=== PATIENT | female | born 1955 | race Caucasian/White ===

== ENCOUNTER 2016-11-26 17:39 | Inpatient (IN) | payer OTHER, MEDICAID ==
[2016-11-26] VITALS (7 sets, daily range): BP systolic 90–129; BP diastolic 61–73
[~2016-11-26] VITALS: Ht 167.6 cm; Wt 103.0 kg
--- NOTE | 2016-11-26 17:39 | NUR ---
gymb585 from [employer]: s/p witnessed seizure x 2. versed 5 given in field. post ictal. nad noted. rr even and unlabored. vss. continue to monitor.
[2016-11-26] MEDS ORDERED: LEVETIRACETAM (500MG) 500 MG in IV NS 0.9% 100 ML IV ONE (18:00)
[2016-11-26] MEDS ORDERED: IV SET PRIMARY PUMP SET 1 EA INFUS.SET MC ONE ×4 (18:24→22:05)
[2016-11-26 18:26] LABS: BASOPHILS % (AUTO) 0.3 % (0.0-2.0); EOSINOPHILS # (AUTO) 0.1 /CMM (0.0-0.7); EOSINOPHILS % (AUTO) 1.7 % (0.0-6.0); HEMATOCRIT 40 % (33-45); HEMOGLOBIN 13.4 g/dL (11.5-14.8); LYMPHOCYTES # (AUTO) 0.3 /CMM (0.8-4.8); LYMPHOCYTES % (AUTO) 6.1 % (20.0-44.0); MEAN CORPUSCULAR HEMOGLOBIN 31 PG (26.0-33.0); MEAN CORPUSCULAR HGB CONC 33 g/dl (31.0-36.0); MEAN CORPUSCULAR VOLUME 93 fL (82-100); MONOCYTES # (AUTO) 0.3 /CMM (0.1-1.30); NEUTROPHILS # (AUTO) 4.7 /CMM (1.8-8.9); NEUTROPHILS % (AUTO) 86.9 % (43.0-81.0); PLATELET COUNT (AUTO) 154 /CMM (150-450); RDW COEFFICIENT OF VARIATION 14.4 (11.5-15.0); RED BLOOD CELL COUNT(AUTO) 4.34 MIL/uL (4.0-5.2); WHITE BLOOD COUNT (AUTO) 5.4 K/uL (4.3-11.0)
[2016-11-26 18:31] LABS: PROTHROMBIN TIME 10.7 SECS (9.5-12.7)
[2016-11-26 18:32] LABS: CALCIUM, SERUM 8.4 mg/dL (8.5-10.1); CARBON DIOXIDE 24 mmol/L (21-32); CHLORIDE 104 mmol/L (98-107); GFR 57 mL/min (>60); GLUCOSE 169 mg/dL (74-106); SODIUM SERUM 139 mmol/L (136-145); UREA NITROGEN, BLOOD 19 mg/dL (7-18)
--- NOTE | 2016-11-26 18:35 | NUR ---
pt to ct
[2016-11-26] MEDS ORDERED: LORAZEPAM INJ 2 MG/ML VIAL ONE ×2 (18:38→19:31)
[2016-11-26 18:39] LABS: TROPONIN I < 0.017 ng/mL (0.00-0.056)
[2016-11-26 18:50] LABS: ALANINE AMINOTRANSFERASE 27 U/L (12-78); ALBUMIN 3.5 g/dL (3.4-5.0); ALKALINE PHOSPHATASE 145 U/L (46-116); ASPARTATE AMINOTRANSFERASE 44 U/L (15-37); BILIRUBIN,TOTAL 0.4 mg/dL (0.2-1.0); TOTAL PROTEIN, SERUM 7.5 g/dL (6.4-8.2)
[2016-11-26 18:51] LABS: ALCOHOL, BLOOD < 3 mg/dL (0-0)
[2016-11-26] MEDS ORDERED: LORAZEPAM INJ 2 MG/ML VIAL IV ONE ×2 (19:00→19:30)
--- NOTE | 2016-11-26 19:11 | NUR ---
REPORT RECEIVED BY HAO ALONSO.
[2016-11-26] MEDS ORDERED: PIPERACILLIN /TAZOBACTAM 3.375 G in IV D5W 50 ML IV ONE (19:30)
[2016-11-26] MEDS ORDERED: VANCOMYCIN 1 GM in IV D5W 250 ML IV ONE (19:30)
[2016-11-26] MEDS ORDERED: IV NS 0.9% 1,000 ML BAG IV ONE (19:30)
[2016-11-26] MEDS ORDERED: IV SET PRIMARY 1 EA INFUS.SET MC ONE (19:34)
[2016-11-26] MEDS ORDERED: PIPERACILLIN /TAZOBACTAM 3.375 G VIAL IV ONE (19:34)
[2016-11-26] MEDS ORDERED: IV NS 0.9% 500 ML IV ONE (19:34)
[2016-11-26] MEDS ORDERED: IV NS 0.9% 3,000 ML ONE (19:34)
[2016-11-26] MEDS ORDERED: phenytoin SODIUM IV 1,000 MG in IV NS 0.9% 100 ML IV ONE (20:00)
--- NOTE | 2016-11-26 20:33 | NUR ---
REPORT GIVEN TO HAO PABLO ICU BED 253
--- NOTE | 2016-11-26 20:34 | NUR ---
ENDORSES TO HAO PABLO IVPB VANCOMYCIN 1GM
[2016-11-26] MEDS ORDERED: LORA1TAB PO (20:47)
--- NOTE | 2016-11-26 21:12 | NUR ---
PT TRASNFERED TO ICU BED 253 PER ACLS PROTOCOL.
[2016-11-26] MEDS ORDERED: ACETAMINOPHEN 650 MG/SUPP.RECT RC ONE (21:49)
[2016-11-26] MEDS ORDERED: IV PREMIX D5 NS + KCL 1,000 ML IV ONE (21:49)
[2016-11-26] MEDS ORDERED: Potassium Chloride 20 MEQ in IV D5/ 0.9% NACL 1,000 ML IV PRN ×2 (22:00→22:30)
[2016-11-26] MEDS: ACETAMINOPHEN 650 MG/SUPP.RECT RC PRN (22:01)
--- NOTE | 2016-11-26 22:19 | NUR ---
MOTION PICTURE DIRECTOR: RECEIVED PT FROM ER AT 2114, ADMITTED UNDER DR BENNETT , DX SEIZURE DISORDERS. PT IS ALTERED , OPEN EYES WITH VERBAL STIMULATION ONLY, FOLLOW SIMPLE COMMANDS. PT RECEIVED KEPPRA IV IN ER, DILANTIN IV WAS RUNNING UPON RECEIVING FROM ER. THERE IS 3 BAGS OF NS WITH 600 ML VOLUME IN EACH BAG HANGING WITHOUT CONNECT TO IV. PER ER NURSE REPORT 3.4 L NS FLUID GIVEN. ALL ADMISSION ASSESSMENT DONE. SKIN IS INTACT. UNABLE TO GET PAST HISTORY EXCEPT SEIZURE MENTIONED IN ER MD DOCUMENTATION. V/S STABLE. ON 3 L NC SATURATING 98%. BP STABLE. TEMP 101.1, TYLENOL SUPPOSITORY RECTALLY INSERTED. COOLING MEASURES APPLIED. DR BENNETT MADE AWARE. ADMISSION ORDERS RECEIVED FROM DR BENNETT. KEEP MONITORING....
--- NOTE | 2016-11-26 22:40 | NUR ---
NUMERICAL CONTROL OPERATOR": RN CALLED DR BENNETT MADE AWARE PT HAS HOME MED ATIVAN 1 MG PO PRN FOR SEIZURES. DR BENNETT DOESN'T WANT TO ORDER ATIVAN PRN FOR SEIZURE, DR WANT RN TO CALL HIM IF SEIZURE OCCURS.SEIZURE PRECAUTION PLACED, SIDE RAILS OF BED PADDED, SEIZURE PAD APPLIED AROUND THE BED. KEEP MONITORING.
[2016-11-27] VITALS (39 sets, daily range): BP systolic 89–140; BP diastolic 41–107
--- NOTE | 2016-11-27 01:03 | NUR ---
TRANSIT WORKER: RECHECKED TEMP 99.6. KEEP MONITORING...
[2016-11-27] MEDS ORDERED: ACETAMINOPHEN 650 MG/SUPP.RECT RC ONE (01:33)
[2016-11-27] MEDS: ACETAMINOPHEN 650 MG/SUPP.RECT RC PRN ×2 (02:09→08:57)
--- NOTE | 2016-11-27 02:11 | NUR ---
CONFIDENTIAL INVESTIGATOR; ORALLY TEMP 102 F, TYLENOL SUPPOSITORY RC INSERTED, COLD BATH GIVEN. TURNED ON FAN. KEEP MONITORING.
[2016-11-27 04:40] LABS: BASOPHILS % (AUTO) 0.3 % (0.0-2.0); EOSINOPHILS % (AUTO) 0.1 % (0.0-6.0); HEMATOCRIT 37 % (33-45); HEMOGLOBIN 12.2 g/dL (11.5-14.8); LYMPHOCYTES # (AUTO) 0.4 /CMM (0.8-4.8); LYMPHOCYTES % (AUTO) 9.3 % (20.0-44.0); MEAN CORPUSCULAR HEMOGLOBIN 31 PG (26.0-33.0); MEAN CORPUSCULAR HGB CONC 33 g/dl (31.0-36.0); MEAN CORPUSCULAR VOLUME 93 fL (82-100); MONOCYTES # (AUTO) 0.2 /CMM (0.1-1.30); MONOCYTES % (AUTO) 4.6 % (2.0-12.0); NEUTROPHILS % (AUTO) 85.7 % (43.0-81.0); PLATELET COUNT (AUTO) 149 /CMM (150-450); RDW COEFFICIENT OF VARIATION 14.1 (11.5-15.0); RED BLOOD CELL COUNT(AUTO) 3.97 MIL/uL (4.0-5.2); WHITE BLOOD COUNT (AUTO) 4.7 K/uL (4.3-11.0)
[2016-11-27] MEDS ORDERED: PIPERACILLIN /TAZOBACTAM 3.375 G VIAL IV ONE (04:44)
[2016-11-27] MEDS ORDERED: SECONDARY IV SET 1 EA INFUS.SET MC ONE ×2 (04:44→17:09)
[2016-11-27] MEDS ORDERED: IV D5W 50 ML IV ONE (04:44)
[2016-11-27 04:56] LABS: BILIRUBIN,TOTAL 0.4 mg/dL (0.2-1.0); CALCIUM, SERUM 7.5 mg/dL (8.5-10.1); CREATININE 0.8 mg/dL (0.6-1.3); MAGNESIUM 1.6 mg/dL (1.8-2.4); PHOSPHORUS 3.2 mg/dL (2.5-4.9); POTASSIUM 3.3 mmol/L (3.5-5.1); TOTAL PROTEIN, SERUM 6.3 g/dL (6.4-8.2)
[2016-11-27 04:58] LABS: LACTIC ACID 0.9 mmol/L (0.4-2.0)
[2016-11-27] MEDS ORDERED: PIPERACILLIN /TAZOBACTAM 3.375 G in IV D5W 50 ML IV SCH (05:00)
[2016-11-27] MEDS ORDERED: PHENYTOIN SODIUM IV 50 MG/ML VIAL IV SCH (05:00)
[2016-11-27 05:05] LABS: THYROID STIMULATING HORMONE 0.922 uIU/mL (0.358-3.74)
[2016-11-27] MEDS ORDERED: ACAR25TA2 PO (05:10)
[2016-11-27] MEDS ORDERED: FOLI1TAB16 PO (05:10)
[2016-11-27] MEDS ORDERED: ATOR40TA PO (05:10)
[2016-11-27] MEDS ORDERED: OXCA300T4 PO (05:10)
[2016-11-27] MEDS ORDERED: LOSA25TA13 PO (05:10)
[2016-11-27] MEDS ORDERED: LEVE1000 PO (05:10)
[2016-11-27] MEDS ORDERED: CITA20TA11 PO (05:10)
[2016-11-27] MEDS ORDERED: CANA300T PO (05:10)
[2016-11-27] MEDS ORDERED: OXCA600T5 PO (05:10)
[2016-11-27] MEDS ORDERED: PREG200C PO (05:10)
[2016-11-27] MEDS ORDERED: INSU100V7 SQ (05:10)
[2016-11-27] MEDS ORDERED: ASPI81TA2 PO (05:10)
--- NOTE | 2016-11-27 05:22 | NUR ---
ACCOUNTS OFFICER'; PT COMFORTABLY SLEEPING. PT BEING MORE ALERT, PT IS AAOX 3, ABLE TO RECALL THE EVENT OF SEIZURES HAPPENED AT GYM. HOME MED LIST PROVIDED BY PATIENT, ENTERED IN COMPUTER. WILL ENDORSE TO NEXT SHIFT TO FOLLOW UP MED RECONCILIATION.
--- NOTE | 2016-11-27 07:45 | NUR ---
METAL TESTER: pt.is A/Ox3, slightly slow speech (not acute by pt.state), symmetric activity+, no Sz over night, no pain now, SR, SBP over 100, O2sat. WNL on 3LO2, NPO, BMx6 last night (long time problem), T100.5, will s/w re home meds verification, K+3.3, IVF, NPO, accuV, diarrhea
--- NOTE | 2016-11-27 08:30 | NUR ---
COATER CARBON PAPER: is in room, updated with pt.history, pt.current condition, VS, I/O, T100.5 now, labs, home meds need to be verify, K+3.3, IVF, diarrhea, ordered: start AccuV AcHs with mild ISS, DM diet, PT eval, continue same IVF. wants to speak pt.neurologist/C
--- NOTE | 2016-11-27 08:40 | NUR ---
TERMINAL GAUGER: got contacts information with , neurologist
[2016-11-27] MEDS ORDERED: POTASSIUM CHLORIDE 20 MEQ TAB.PRT.SR PO ONE (09:00)
[2016-11-27] MEDS ORDERED: LEVETIRACETAM (500MG) 500 MG in IV NS 0.9% 100 ML IV SCH (09:00)
[2016-11-27] MEDS ORDERED: ASPIRIN 81 MG TAB.CHEW PO SCH ×2 (09:00→18:00)
[2016-11-27] MEDS ORDERED: *INSULIN REGULAR(HUMULIN R)HUM 100 UNIT/ML VIAL SQ PRN (09:00)
[2016-11-27] MEDS ORDERED: DEXTROSE 50%-WATER 50 ML DISP.SYRIN IV PRN (09:00)
[2016-11-27] MEDS ORDERED: Medication Not On Formulary EA (Canagliflozin (Invokana) 300 MG) PO SCH (09:00)
[2016-11-27] MEDS ORDERED: OXCARBAZEPINE 150 MG TABLET PO SCH ×2 (09:00→18:00)
--- NOTE | 2016-11-27 09:00 | NUR ---
CARD SERVICES SPECIALIST: canceled IVF, F/c, ordered: PT eval, transfer to [place], influenza sample
[2016-11-27] MEDS: BLOOD SUGAR DIAGNOSTIC 1 EACH STRIP VI SCH ×4 (09:16→21:27)
[2016-11-27] MEDS: LORAZEPAM 1 MG TABLET PO SCH ×3 (09:24→17:00)
[2016-11-27] MEDS: CITALOPRAM HYDROBROMIDE 20 MG TABLET PO SCH (09:26)
[2016-11-27] MEDS: FOLIC ACID 1 MG TABLET PO SCH (09:27)
[2016-11-27] MEDS: LEVETIRACETAM (250 MG) 250 MG TABLET PO SCH ×2 (09:31→21:23)
[2016-11-27] MEDS: LOSARTAN POTASSIUM 25 MG TABLET PO SCH ×2 (09:34→17:00)
[2016-11-27] MEDS: INSULIN REGULAR, HUMAN 100 UNIT/ML 3 ML VIAL SQ PRN ×2 (09:41→12:29)
[2016-11-27] MEDS: PREGABALIN 25 MG CAPSULE PO SCH ×2 (09:41→17:21)
[2016-11-27] MEDS ORDERED: IV SET PRIMARY PUMP SET 1 EA INFUS.SET MC ONE ×3 (10:09→17:09)
[2016-11-27] MEDS: AZITHROMYCIN 500 MG in IV D5W 250 ML IV SCH (10:16)
--- NOTE | 2016-11-27 10:30 | NUR ---
PROTECTIVE SIGNAL SUPERINTENDENT: Infection department was notified: influenza sample is done, requested to isolate pt.
[2016-11-27] MEDS: Magnesium 1GM/D5W 100ML PREMIX 100 ML IV SCH ×2 (10:55→11:59)
--- NOTE | 2016-11-27 11:53 | NUR ---
SILVERING DEPARTMENT SUPERVISOR- PT HAS HAD 3 EPISODES OF LOOSE DIARRHEA SINCE BEGINNING OF THE SHIFT. C-DIFF IS PENDING. CALLED AND INFORMED DR. BENNETT. OBTAINED ORDER FOR IMODIUM 2 MG AFTER EACH LOOSE STOOL, DO NOT EXCEED 16 MG/DAY. ORDER PLACED AND CARRIED OUT. PT UPDATED WITH PLAN OF CARE. WILL CONTINUE TO MONITOR.
[2016-11-27] MEDS ORDERED: LOPERAMIDE HCL (2 MG CAP) 2 MG CAPSULE PO PRN (12:00)
[2016-11-27] MEDS: PIPERACILLIN /TAZOBACTAM 3.375 G in IV D5W 50 ML IV SCH ×3 (12:00→23:23)
[2016-11-27] MEDS: ACARBOSE 50 MG TABLET PO SCH ×2 (12:30→17:00)
[2016-11-27] MEDS ORDERED: ACARBOSE 25 MG TABLET PO SCH (13:00)
--- NOTE | 2016-11-27 13:53 | NUR ---
ATIVAN 1 MG NON-ADMINISTERED FOR 1300 DOSE DUE TO PT SLEEPING AND RESTING CALMLY IN BED, DISPLAYING NO S/S OF ANXIETY, AGITATION. WILL CONTINUE TO MONITOR.
--- NOTE | 2016-11-27 14:48 | NUR ---
GENERAL MAINTENANCE MECHANIC: pt.is drowsy, reactive well with speak/touch, no c/o now, no any pain, O2 sat. over 94% on 2L O2, had some short episodes sleep apnea, 13.00 Ativan dose was held, SBP 92-108, SR, influenza negative, d/gibran isolation, is going to transfer
--- NOTE | 2016-11-27 16:09 | NUR ---
AUTHORIZATION MANAGER: pt.is A/Ox3 now, can follow commands well, no any pain, no Sz, SR, SBP over 100 below 140, O2 sat. over 94%, full report was given for MS unit nurse
--- NOTE | 2016-11-27 16:32 | NUR ---
MS/post adoption coordinator Patient transferred from ICU. Oriented to new surroundings, call light within reach. Remains on seizure precautions, side rails padded and in upright position. Updated as to plan of care. Will continue to monitor and ensure safety.
[2016-11-27] MEDS ORDERED: IV NS 0.9% 250 ML IV ONE (17:09)
[2016-11-27] MEDS ORDERED: ATORVASTATIN 40 MG TABLET PO SCH (18:00)
--- NOTE | 2016-11-27 18:50 | NUR ---
MS/RN End note Patient remains stable since transfer, all needs attended. Will endorse to operations supervisor 2nd shift.
--- NOTE | 2016-11-27 19:30 | NUR ---
MS RN NOTE RECEIVED PATIENT ASLEEP IN BED. EASILY AROUSABLE BY NAME. PATIENT DENIES ANY PAIN OR DISCOMFORT AT THIS TIME. IV SITE INTACT. NO REDNESS OR INFILTRATION NOTED. SEIZURE PRECAUTIONS IN PLACE. BED LOCKED AND IN LOWEST POSITION. SIDE RAILS UP, CALL LIGHT WITHIN REACH. WILL CONTINUE TO MONITOR.
[2016-11-27] MEDS ORDERED: INSULIN DETEMIR 100 UNIT/ML CARTRIDGE SQ SCH (22:00)
[2016-11-28] MEDS: PIPERACILLIN /TAZOBACTAM 3.375 G in IV D5W 50 ML IV SCH ×2 (05:00→12:08)
--- NOTE | 2016-11-28 06:19 | NUR ---
MS RN NOTE PATIENT STABLE. ALL NEEDS MET AND ATTENDED TO. WILL ENDORSE TO DAY SHIFT FOR DIANA.
[2016-11-28 06:39] LABS: BASOPHILS % (AUTO) 0.3 % (0.0-2.0); EOSINOPHILS % (AUTO) 0.9 % (0.0-6.0); HEMATOCRIT 36 % (33-45); HEMOGLOBIN 12.1 g/dL (11.5-14.8); LYMPHOCYTES # (AUTO) 0.7 /CMM (0.8-4.8); LYMPHOCYTES % (AUTO) 14.6 % (20.0-44.0); MEAN CORPUSCULAR HEMOGLOBIN 31 PG (26.0-33.0); MEAN CORPUSCULAR HGB CONC 34 g/dl (31.0-36.0); MEAN CORPUSCULAR VOLUME 94 fL (82-100); MONOCYTES # (AUTO) 0.4 /CMM (0.1-1.30); MONOCYTES % (AUTO) 8.2 % (2.0-12.0); NEUTROPHILS # (AUTO) 3.6 /CMM (1.8-8.9); PLATELET COUNT (AUTO) 127 /CMM (150-450); RDW COEFFICIENT OF VARIATION 14.6 (11.5-15.0); RED BLOOD CELL COUNT(AUTO) 3.85 MIL/uL (4.0-5.2); WHITE BLOOD COUNT (AUTO) 4.8 K/uL (4.3-11.0)
[2016-11-28] MEDS: BLOOD SUGAR DIAGNOSTIC 1 EACH STRIP VI SCH ×2 (06:48→12:06)
[2016-11-28 07:12] LABS: ALBUMIN 2.9 g/dL (3.4-5.0); BILIRUBIN,TOTAL 0.5 mg/dL (0.2-1.0); CREATININE 0.8 mg/dL (0.6-1.3); MAGNESIUM 1.7 mg/dL (1.8-2.4); TOTAL PROTEIN, SERUM 6.3 g/dL (6.4-8.2)
--- NOTE | 2016-11-28 07:18 | NUR ---
RN NOTES RECEIVED PT IN BED. SLEEPING BUT EASY TO AROUSE. IN NO APPARENT DISTRESS. RESPIRATIONS EVEN AND UNLABORED. DENIES PAIN AND DISCOMFORT AT THIS TIME. WILL CONTINUE TO MONITOR. CALL LIGHT WITHIN REACH
[2016-11-28 08:00] VITALS: BP 116/65
[2016-11-28] MEDS: LORAZEPAM 1 MG TABLET PO SCH ×2 (08:34→12:08)
[2016-11-28 08:35] VITALS: BP 116/65
[2016-11-28] MEDS: LOSARTAN POTASSIUM 25 MG TABLET PO SCH (08:35)
[2016-11-28] MEDS: PREGABALIN 25 MG CAPSULE PO SCH (08:35)
[2016-11-28] MEDS: CITALOPRAM HYDROBROMIDE 20 MG TABLET PO SCH (08:35)
[2016-11-28] MEDS: FOLIC ACID 1 MG TABLET PO SCH (08:35)
[2016-11-28] MEDS: ACARBOSE 50 MG TABLET PO SCH ×2 (08:43→12:08)
[2016-11-28] MEDS ORDERED: OXCARBAZEPINE 150 MG TABLET PO SCH (09:00)
[2016-11-28] MEDS ORDERED: OXCA300T PO (09:36)
[2016-11-28] MEDS ORDERED: LEVO500T15 PO (09:36)
[2016-11-28] MEDS: AZITHROMYCIN 500 MG in IV D5W 250 ML IV SCH (09:43)
[2016-11-28] MEDS: LEVETIRACETAM (250 MG) 250 MG TABLET PO SCH (09:43)
--- NOTE | 2016-11-28 10:00 | NUR ---
RN NOTES PT TOLERATED ALL DUE MEDS. WILL CONTINUE TO MONITOR
--- NOTE | 2016-11-28 11:40 | NUR ---
RN NOTES PT SEEN AND EXAMINED BY DR BENNETT- WITH NEW ORDERS FOR DISCHARGE. NOTED AND CARRIED OUT. DISCHARGE PAPERS DONE VIA [employer]. WILL ARRANGE TRANSPORTATION. PT SAID SHE MIGHT HAVE TO WAIT TIL 3PM TO GET SOME ASSISTANCE RECEIVING FROM NEIGHBOR, NOTED.
--- NOTE | 2016-11-28 12:30 | NUR ---
RN NOTES PT SEEN BY PHYSICAL THERAPY- RECOMMENDS HOME HEALTH. PT STRONGLY REFUSED ARRANGING HOME HEALTH. NOTED. EDUCATED ABOUT RISKS AND BENEFITS
[2016-11-28] MEDS ORDERED: MAGNESIUM OXIDE 400 MG TABLET PO ONE (13:00)
--- NOTE | 2016-11-28 15:37 | NUR ---
RN NOTES PT DISCHARGED ORDERED. IN NO DISTRESS. VS WNL.
== END 2016-11-28 15:36 | disposition home or self-care (01) | DRG 100 ==
LOC: ER 17:40 → ICU 19:37 → MEDSG2 11-27 16:14
PROVIDERS: ADMIT Internal Medicine; ATTEND Internal Medicine
DX: G40.909 Epilepsy, unspecified, not intractable, without status epilepticus (principal); J15.9 Unspecified bacterial pneumonia; J69.0 Pneumonitis due to inhalation of food and vomit; E11.9 Type 2 diabetes mellitus without complications; E78.5 Hyperlipidemia, unspecified; I10 Essential (primary) hypertension
CPT/HCPCS: 36415; 70450-TC; 71010-TC; 72125-TC; 80048-TC; 80053-TC; 80076-TC; 80185-TC; 82542; 82962-TC; 83605-TC; 83735-TC; 84100-TC; 84443-TC; 84484-TC; 85025-TC; 85730-TC; 87040-TC; 87081-TC; 87400; 97001-TC; A4606; G0480; J0456; J1165; J1815; J1953; J2060; J2543; J3370; J3475; J3480; J3490; J7030; J7040; J7042; J7050; J7060; Z7610

== ENCOUNTER 2020-05-25 15:03 | Emergency (ER) | payer MEDICARE, OTHER ==
[~2020-05-25] VITALS: Ht 170.2 cm; Wt 90.7 kg
[~2020-05-25 15:03] MED LIST: ACAR25TA2 PO; ASPI-1169 PO; ATOR40TA PO; CANA300T PO; CITA20TA16 PO; FOLI1TAB16 PO; INSU100V7 SQ; LEVE1000 PO; LEVO500T23 PO; LORA1TAB PO; LOSA25TA27 PO; OXCA300T15 PO; PREG200C PO
--- NOTE | 2020-05-25 15:17 | NUR ---
[facility] AND [employer] TO ER BED 12. AAOX4, NOT IN RESP DISTRESS, BREATHING EVEN AND UNLABORED. BROUGHT IN FOR SUICIDAL IDEATION. PT WAS REPORTED BY [employer] TO BE EVICTED FROM HER APT. PT VERBALIZED THAT SHE IS HAVING DIFFICULTY IN HER LIFE AND CANT FUNCTION. DENIES HOMICIDAL IDEATION. PT IS STRIPPED OF CLOTHING AND BELONGINGS KEPT IN LOCKER. PT IS VISUALLY INSPECTED. 1:1 SITTER AT BEDSIDE. WAS AT THE BEDSIDE FOR EVAL.
--- NOTE | 2020-05-25 15:20 | NUR ---
Pt's plan according to 5150 hold is to overdose with her seizure medication
--- NOTE | 2020-05-25 15:20 | NUR ---
PT IS ON 5150 HOLD FOR DANGER TO SELF BY [facility]IDAN
[2020-05-25 15:52] LABS: BASOPHILS # (AUTO) 0.1 /CMM (0.0-0.2); BASOPHILS % (AUTO) 0.6 % (0.0-2.0); EOSINOPHILS % (AUTO) 0.4 % (0.0-6.0); HEMATOCRIT 45 % (33-45); HEMOGLOBIN 14.8 g/dL (11.5-14.8); LYMPHOCYTES # (AUTO) 1.6 /CMM (0.8-4.8); LYMPHOCYTES % (AUTO) 19.5 % (20.0-44.0); MEAN CORPUSCULAR HGB CONC 33 g/dl (31.0-36.0); MEAN CORPUSCULAR VOLUME 100 fL (82-100); MONOCYTES # (AUTO) 0.7 /CMM (0.1-1.30); MONOCYTES % (AUTO) 8.8 % (2.0-12.0); NEUTROPHILS # (AUTO) 5.9 /CMM (1.8-8.9); NEUTROPHILS % (AUTO) 70.7 % (43.0-81.0); PLATELET COUNT (AUTO) 199 /CMM (150-450); RED BLOOD CELL COUNT(AUTO) 4.51 MIL/uL (4.0-5.2); WHITE BLOOD COUNT (AUTO) 8.4 K/uL (4.3-11.0)
[2020-05-25 15:59] LABS: CALCIUM, SERUM 10.3 mg/dL (8.5-10.1); CARBON DIOXIDE 29 mmol/L (21-32); CHLORIDE 99 mmol/L (98-107); CREATININE 0.7 mg/dL (0.6-1.3); GLUCOSE 159 mg/dL (74-106); POTASSIUM 3.9 mmol/L (3.5-5.1); SODIUM SERUM 135 mmol/L (136-145); UREA NITROGEN, BLOOD 33 mg/dL (7-18)
--- NOTE | 2020-05-25 16:02 | NUR ---
LINA notified by ED staff regarding pt. on a 5150 hold by [employer] due to DTS with a plan to OD on her seizure medication. LINA consulted with Danielle Schultz LCSW. LINA called Yana [phone] at intake to work on placement at [facility]'s psychiatric facility [[id number] [place] [address] ] as they are [facility] the [facility] SW before 1630 or ED after 1630 when SW is off.
--- NOTE | 2020-05-25 16:05 | NUR ---
URINE COLLECTED AND SENT TO LAB
[2020-05-25 16:12] LABS: ALANINE AMINOTRANSFERASE 22 U/L (12-78); ALBUMIN 3.4 g/dL (3.4-5.0); ALCOHOL, BLOOD < 3 mg/dL (0-0); ALKALINE PHOSPHATASE 104 U/L (46-116); ASPARTATE AMINOTRANSFERASE 37 U/L (15-37); TOTAL PROTEIN, SERUM 7.5 g/dL (6.4-8.2)
[2020-05-25 16:14] LABS: ACETAMINOPHEN 0 ug/ml (10-30)
[2020-05-25 16:20] LABS: APPEARANCE,URINE Clear (CLEAR); BILIRUBIN,URINE Negative (NEGATIVE); BLOOD, URINE Trace-lysed Ery/uL (NEGATIVE); COLOR,URINE Yellow (YELLOW); LEUKOCYTE ESTERASE ,URINE Negative (NEGATIVE); NITRITE, URINE Negative (NEGATIVE); PROTEIN,URINE 30 mg/dl (NEGATIVE); UGLUCOSE >=1000 mg/dL (NEGATIVE); UROBILINOGEN,URINE 0.2 EU/dL (0.2)
[2020-05-25 16:28] LABS: RBC,URINE 0-2 /HPF (0-2)
[2020-05-25 16:29] LABS: BACTERIA,URINE Few /HPF (None Seen); SQUAMOUS EPITHELIAL CELL,UR Few /HPF (None Seen); WBC,URINE 0-3 /HPF (0-3)
[2020-05-25 16:40] LABS: BILIRUBIN,DIRECT 0.1 mg/dL (0.0-0.2); BILIRUBIN,TOTAL 0.4 mg/dL (0.2-1.0)
[2020-05-25] MEDS ORDERED: IV NS 0.9% 1,000 ML IV ONE (18:00)
--- NOTE | 2020-05-25 18:20 | NUR ---
CALL FROM KIM IN INTAKE, WANTS US TO F/U WITH CENTRAL INTAKE REGARDING PLACEMENT,[phone]
--- NOTE | 2020-05-25 18:25 | NUR ---
CALLED IRINA FOR CRISIS EVAL.
--- NOTE | 2020-05-25 20:06 | NUR ---
CALL FROM LAB, RAPID COVID NEGATIVE.
[2020-05-25] MEDS ORDERED: PREGABALIN 100 MG CAPSULE PO STA (20:56)
--- NOTE | 2020-05-25 20:56 | NUR ---
IRINA RN AT BEDSIDE FOR PSYCH EVAL
[2020-05-25] MEDS ORDERED: OXCARBAZEPINE 150 MG TABLET PO ONE (21:00)
[2020-05-25] MEDS ORDERED: LEVETIRACETAM (250 MG) 250 MG TABLET PO ONE ×2 (21:00→21:20)
[2020-05-25] MEDS ORDERED: OXCARBAZEPINE 150 MG TABLET ONE (21:20)
--- NOTE | 2020-05-25 21:35 | NUR ---
REPORT GIVEN TO HAO ZHONG AT THE [facility]
[2020-05-25] MEDS ORDERED: PREGABALIN 100 MG CAPSULE ONE (21:39)
--- NOTE | 2020-05-25 21:43 | NUR ---
LYRICA 200MG PO WAS TAKEN FROM [facility] [employer].
[2020-05-25 22:16] VITALS: BP 118/81
--- NOTE | 2020-05-25 22:20 | NUR ---
PT AMBULATED TO BATHROOM ON STEADY GAIT W/O ASSIST
--- NOTE | 2020-05-25 23:00 | NUR ---
ACCPTING MD AT [facility] DR. HUNTER. PT IS GOING TO ROOM 52-B
--- NOTE | 2020-05-25 23:55 | NUR ---
[facility] - [phone] ADDRESS: [address] [place] [id number]
--- NOTE | 2020-05-26 00:37 | NUR ---
[facility] at bedside for transport to [facility]
--- NOTE | 2020-05-26 09:52 | NUR ---
Dr. Mendez from [facility] followed up on patient's 5150 status. This SW informed Dr. Mendez that the patient was transferred to . [facility] [phone] [facility] [address] [address] the care [address] Celeste.
== END 2020-05-26 00:40 ==
LOC: ER 15:09
DX: R45.851 Suicidal ideations (principal); E86.0 Dehydration; Z91.5 Personal history of self-harm; R94.31 Abnormal electrocardiogram [ECG] [EKG]; Z79.82 Long term (current) use of aspirin; Z79.899 Other long term (current) drug therapy; E11.9 Type 2 diabetes mellitus without complications; Z79.4 Long term (current) use of insulin; G40.909 Epilepsy, unspecified, not intractable, without status epilepticus; I10 Essential (primary) hypertension; E78.5 Hyperlipidemia, unspecified; Z85.9 Personal history of malignant neoplasm, unspecified; I83.90 Asymptomatic varicose veins of unspecified lower extremity; Z20.828 Contact with and (suspected) exposure to other viral communicable diseases
CPT/HCPCS: 36415; 80048; 80076; 80299; 80307; 80320; 81001; 83735; 85025; 87426; 93005; 96360; 99285; J7030; 81000-TC; C9803; G0480